=== PATIENT | male | born 1945 | race Two or more races ===

== ENCOUNTER 2025-06-26 17:47 | Emergency (ER) | payer MEDICARE, MEDICAID, SELFPAY ==
--- NOTE | 2025-06-26 18:06 | PC.NURSE ---
PLACED PATIENT IN RIGID C COLLAR FOR C/O NECK PAIN S/P FALL
[2025-06-26 18:18] VITALS: BP 162/79; PULSE 70; RESP 18; TEMP 37; O2SAT 97
--- NOTE | 2025-06-26 18:39 | EKG_ITS ---
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
--- NOTE | 2025-06-26 18:39 | XR_ITS ---
Examination: CT cervical spine without contrast 2-D sagittal reconstructions 2-D coronal reconstructions 3-D reconstructions. Exam date and time:June 26, 2025, 1905 hours INDICATIONS: Patient fell 4 days ago with the neck, neck pain CTDI:vol (mGy) 13.7 DLP: (mGycm) 321 Technique: Multiple 2 mm axial sections of the cervical spine have been obtained. The coronal and sagittal reconstructions have been obtained. 3-D reconstructions have been obtained. Low dose protocols were performed. One or more of the following dose reduction techniques were used; automated exposure control, adjustment of the mA and/or KV according to patient size, use of iterative reconstruction technique. Findings: Axial sections demonstrate intact base of the skull. C1 exhibit satisfactory relationship to the odontoid. No acute cervical vertebral body fracture seen. Alignment posterior spinous processes satisfactory. Impression: No acute cervical fracture.
--- NOTE | 2025-06-26 18:39 | XR_ITS ---
Examination: CT brain head without contrast. 2-D sagittal coronal reconstructions Date and time of exam:June 26, 2025, 1909 hours INDICATIONS: Patient fell 4 days ago with images of the head, head pain CTDI: vol (mGy):13.7 DLP: (mGycm):1457 Technique: Multiple CT axial sections of the brain have been obtained, 5 mm slice thickness. Contrast has not been administered. 2-D sagittal, coronal reconstructions have been obtained Low dose protocols were performed. One or more of the following dose reduction techniques were used; automated exposure control, adjustment of the mA and/or KV according to patient size, use of iterative reconstruction technique. Findings: No significant ventricular enlargement. Bilateral chronic subdural hygromas Intra-axial or extra-axial hemorrhage density is not seen. No mass effect or midline shift Basal cisterns are not remarkable. Fourth ventricle is midline. Cranial vault intact. Impression: Negative for acute hemorrhage, mass effect or midline shift Bilateral chronic subdural hygromas, recommend short-term follow-up CT brain scan as clinically warranted
--- NOTE | 2025-06-26 18:39 | XR_ITS ---
Examination: AP chest single view TECHNIQUE: AP supine portable chest single view Date and time: June 26, 2025 2148 hours INDICATIONS: Shortness of breath today. FINDINGS: Normal heart size. Lungs are clear. Old left-sided rib fractures. IMPRESSION: No pneumonia or pulmonary edema
--- NOTE | 2025-06-26 18:39 | XR_ITS ---
Examination:Left hip AP, lateral, AP pelvis 3 views Technique: Hip AP lateral, AP pelvis, 3 views Exam date and time:June 26, 2025 2115 hours INDICATIONS: Left hip pain this week. FINDINGS: Left hip hemiarthroplasty with satisfactory alignment No fracture Right hip bones of the pelvis intact Moderate narrowing right hip joint IMPRESSION: Left hip hemiarthroplasty with satisfactory alignment.
--- NOTE | 2025-06-26 18:48 | PD.EDHEAD ---
ED Head Injury RME/HPI General Chief complaint: Head Injury Stated complaint: SENT BY PMD FOR DIZZINESS, HIT HEAD THURS. Time Seen by Provider: 06/26/25 18:38 Arrival date/time: 06/26/25 17:47 80M with history of HTN and DM presents to ED with dizziness after he got dizzy, fell and hit the back of his head several days ago. Patient also has some L hip pain. Limitations: no limitations Related Data Allergies Allergy/AdvReac Type Severity Reaction Status Date / Time No Known Allergies Allergy Verified 06/26/25 17:56 Review of Systems Review of Systems Systems Reviewed: All systems reviewed, normal except as documented Constitutional Constitutional: Reports system reviewed and no additional complaints, except as documented, Denies fever(s) and Denies headache(s) ENT Ears, Nose, Mouth, and Throat: Reports as per HPI, Denies disequilibrium, Denies headache(s) and Reports vertigo Cardiovascular Cardiovascular: Reports system reviewed and no additional complaints, except as documented, Denies chest pain and Denies dyspnea Respiratory Respiratory: Reports system reviewed and no additional complaints, except as documented, Denies cough and Denies dyspnea Gastrointestinal Gastrointestinal: Reports system reviewed and no additional complaints, except as documented, Denies abdominal pain, Denies nausea and Denies vomiting Musculoskeletal Musculoskeletal: Reports as per HPI and Reports arthralgias Neurologic Neurologic: Reports system reviewed and no additional complaints, except as documented, Denies confusion, Denies disequilibrium, Denies headache(s) and Reports vertigo Psychiatric Psychiatric: Denies confusion Past Medical History Social History SMOKING STATUS: Current every day smoker ED Exam General Limitations: Present no limitations General appearance: Present alert and in no apparent distress Head Head exam: Present atraumatic Eye Eye exam: Present PERRL (R pupil white reflection) and EOMI ENT ENT exam: Present normal exam, normal oropharynx and mucous membranes moist Neck Neck exam: Present normal inspection, full ROM and trachea midline Chest Chest inspection: Present normal inspection and symmetric chest wall rise Respiratory Respiratory exam: Present normal lung sounds bilaterally Cardiovascular Cardiovascular exam: Present regular rate, normal rhythm and normal heart sounds Abdominal Exam Abdominal exam: Present soft and normal bowel sounds Extremities Exam Extremities exam: Present normal inspection and full ROM Back Exam Back exam: Present normal inspection and full ROM Neurological Exam Neurological exam: Present alert, oriented X3 and CN II-XII intact Psychiatric Psychiatric exam: Present normal affect and normal mood Skin Skin exam: Present warm, dry, intact and normal color Course Quality Measures none Orders Category Date Time Status CT Screening NOW Care 06/27/25 00:27 Completed EKG (ED ONLY) *Do not use* NOW Care 06/26/25 18:39 Completed IV [Insert IV] STAT Care 06/27/25 00:44 Completed Rigid cervical collar PRN Care 06/26/25 18:[address] angio chest abdomen pelvis Stat Exams 06/27/25 00:[address] cervical spine wo con Stat Exams 06/26/25 18:[address] chest abdomen pelvis wo Stat Exams 06/26/25 22:[address] head/brain wo con Stat Exams 06/26/25 18:39 Taken EKG (ED Only) Stat Exams 06/26/25 18:39 Draft XR chest 1V portable Stat Exams 06/26/25 18:39 Taken XR hip LT w pelvis 2-3V Stat Exams 06/26/25 18:39 Taken Alcohol, Blood Medical Stat Lab 06/26/25 18:50 Completed CBC Stat Lab 06/26/25 18:50 Completed Comprehensive Metabolic Panel Stat Lab 06/26/25 18:50 Completed D-Dimer Stat Lab 06/26/25 18:50 Completed Drug Screen,Urine Stat Lab 06/26/25 22:04 Completed Magnesium Stat Lab 06/26/25 18:50 Completed Troponin I Stat Lab 06/26/25 18:50 Completed Urinalysis Stat Lab 06/26/25 22:04 Completed Vital Signs Vital signs: Vital Signs Temperature 98.6 F 06/26/25 18:18 Pulse Rate 70 06/26/25 18:18 Respiratory Rate 18 06/26/25 18:18 Blood Pressure 162/79 H 06/26/25 18:18 Pulse Oximetry (%) 97 06/26/25 18:18 Oxygen Delivery Method Room Air 06/26/25 18:18 O2 at 97% on RA and WNLs Head Injury MDM Narrative MDM Narrative:: 80M with history of HTN and DM presents to ED with dizziness after he got dizzy, fell and hit the back of his head several days ago. Patient also has some L hip pain. Physical exam reveals normal pupil response and EOM; some white reflection in R eye where patient had some kind of eye surgery 20 years ago. No gross head trauma. 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 No gross L hip tenderness. Gait and speech normal. Normal WOB. Patient is afebrile, calm, and alert. EKG is NSR. Telerad CXR possible fx. Normal trop. D-dimer normal. Telerad read CT head/neck no acute abnormalities. CT chest/ab/pelv w/o contrast shows 2 acute rib fractures, though patient doesn't have pain. Also, possible aortic dissection. CTA shows 3.5 cm abdominal aorta with thrombus inside. Size is too small for surgical intervention. Patient AMA'd because he didn't want to wait for head MRI to r/o stroke as cause of dizziness. Patient data External records reviewed:: [facility] previous records Clinical information provided by:: patient Social determinants that could affect healthcare access:: none Patient has the following chronic illnesses:: HTN and DM How is presenting disease/condition affected by chronic disease/condition?: exacerbated by Evaluation data The following diagnostics were reviewed and interpreted by me:: lab results, radiology exam(s) and EKG tracing(s) Lab and/or radiology exams considered but not ordered:: ordered Interpretation Summary: above Medications / Prescriptions Medications or Prescriptions considered but not ordered:: not ordered Medication administrations:: n/a Consultations Consultation(s) initiated? (list below): No Diagnosis Differential diagnosis head injury: concussion without loss of consciousness, epidural hematoma, closed head injury, subarachnoid hematoma, postconcussion syndrome, subdural hematoma and other (hip contusion/fx, internal bleeding, CVA/TIA, brain bleed, Aortic anuerysm, rib fracture, dizziness) Most likely diagnosis given after review of the tests above:: Aortic anuerysm, rib fracture, dizziness Admission Indicated Admission indicated?: not indicated Admission Request Was there a request for admission?: No Disposition Plan Disposition Plan: other (specify) (AMA) Discharge Plan Plan Patient Disposition: Left Against Medical Advice Prescriptions/Referrals Referrals: Anival Bhatia MD [Primary Care Provider] - In 1 week Problem List Clinical Impression: Closed rib fracture, Abdominal aneurysm, Dizziness Patient/Caregiver Discharge Instructions Print Language: Cambodian PA/[employer] CELEBRANT Supervising Physician PA/[employer] CELE[employer] Supervising Physician: Dr. Tilley
[2025-06-26 19:06] LABS: Basophils # (Auto) 0.0 Thou/mm3 (0.0-0.2); Basophils % (Auto) 1 % (0-2.5); Eosinophils # (Auto) 0.1 Thou/mm3 (0.0-0.5); Eosinophils % (Auto) 2 % (0-10); Hematocrit 43.5 % (41.0-53.0); Hemoglobin 14.7 g/dL (13.5-16.0); Immature Granulocytes Auto 0.02 Thou/mm3 (0.00-0.00); Lymphocytes # (Auto) 1.9 Thou/mm3 (1.0-4.8); Lymphocytes % (Auto) 27 % (10-50); Mean Corpuscular HGB Conc 33.8 g/dl (31.0-37.0); Mean Corpuscular Hemoglobin 31.7 pg (25.0-35.0); Mean Corpuscular Volume 94 fL (80-100); Monocytes # (Auto) 0.4 Thou/mm3 (0.0-0.8); Monocytes % (Auto) 6 % (0-12); Neutrophils # (Auto) 4.5 Thou/mm3 (1.8-7.7); Neutrophils % (Auto) 64 % (37-80); Nucleated Red Blood Cell # 0.00 Thou/mm3 (0.00-0.00); Nucleated Red Blood Cell % 0 /100 WBC (0); Platelet Count 221 Thou/mm3 (140-440); RDW Standard Deviation 45.3 fL (35.1-43.9); Red Blood Count 4.64 Miln/mm3 (4.50-5.90); White Blood Count 7.0 Thou/mm3 (3.8-10.6)
[2025-06-26 19:44] LABS: Alanine Aminotransferase 14 U/L (10-49); Albumin, Serum 5.3 gm/dL (3.4-4.8); Albumin/Globulin Ratio 2.3 (1.2-2.2); Alcohol, Blood Medical < 3.0 mg/dL (0-10.0); Alkaline Phosphatase 92 U/L (46-116); Anion Gap 10 (7-16); Aspartate Amino Transferase 15 U/L (0-34); BUN/Creatinine Ratio 14 Ratio (12-20); Bilirubin,Total 0.5 mg/dL (0.3-1.2); Blood Urea Nitrogen 11 mg/dL (9-23); Calcium 10.4 mg/dL (8.3-10.6); Calcium (Corrected) 10.4 mg/dL (8.5-10.1); Carbon Dioxide 27.5 mMol/L (20.0-31.0); Chloride 105 mMol/L (98-107); Creatinine (Component) 0.8 mg/dL (0.6-1.3); Globulin 2.3 gm/dL (2.3-3.5); Glucose 110 mg/dL (74-106); Magnesium 1.9 mg/dL (1.6-2.6); Osmolality,Calculated 283 (275-295); Potassium 4.6 mMol/L (3.4-5.1); Sodium 142 mMol/L (136-145); Total Protein 7.6 gm/dL (5.7-8.2); Troponin I < 0.002 ng/mL (0.0-0.045); eGFR > 60 See Note
[2025-06-26 19:52] LABS: D-Dimer 264 ng/mL (<600)
--- NOTE | 2025-06-26 22:47 | XR_ITS ---
Examination: CT chest, without intravenous contrast. CT abdomen, without intravenous contrast. CT pelvis, without intravenous contrast. 2-D sagittal and coronal reconstructions. 3-D reconstructions. Date and time of exam:June 26, 2025 at 1132 hours INDICATIONS: Patient fell 4 days ago with injury to the chest and abdomen, chest pain abdomen pain CTDI vol (mgy) 6.65 DLP (MGycm)491 Technique: Multiple CT images, 3.0 mm slice thickness, obtained chest, abdomen, pelvis, with the high-resolution 64 slice scanner.. Sagittal and coronal 2-D reconstructions are obtained. 3-D reconstructions Low dose protocols were performed. One or more of the following dose reduction techniques were used; automated exposure control, adjustment of the mA and/or KV according to patient size, use of iterative reconstruction technique. 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 Manubrium and body of the sternum is intact No thoracic lumbar or sacral fracture detected Acute appearing nondisplaced fractures left fourth, fifth ribs anterolaterally No liver or splenic or renal laceration Double-lumen also involving the abdominal aorta AP dimension infrarenal abdominal aorta 3 cm Gallstones No free blood in the abdomen Normal appendix Colonic diverticulosis Negative for pneumoperitoneum Urinary bladder intact Left hip hemiarthroplasty Right hip intact bones of the pelvis intact IMPRESSION: Double lumen of the ascending thoracic aorta, consider thoracic aortic chronic dissection similar double-lumen involving the abdominal aorta consider chronic abdominal aortic dissection consider CTA chest abdomen and pelvis post intravenous contrast follow-up COPD No pneumothorax or hemothorax Acute appearing nondisplaced fractures left fourth and fifth ribs No abdominal parenchymal laceration No free blood in the abdomen or pelvis
[2025-06-26 22:54] LABS: Collection Type, Urine Clean Catch; Squamous Epithelial Cell,Urine 0 /hpf (0-5); WBC,Urine 0 /hpf (0-5)
[2025-06-26 23:13] LABS: Bilirubin,Urine Negative (Negative); Blood,Urine Negative (Negative); Clarity,Urine Clear (Clear/Hazy); Color,Urine Lt-Yellow (Lt Yel-Yel); Glucose, Urine Negative (Negative); Ketones,Urine Negative (Negative); Leukocyte Esterase,Urine Negative (Negative); Nitrite,Urine Negative (Negative); PH,Urine 8.0 (5.0-7.0); Protein,Urine Negative (Neg - Trace); RBC,Urine 2 /hpf (0-3); Specific Gravity,Urine 1.020 (1.001-1.035); Urobilinogen,Urine 2.0 mg/dL (0.0-1.0)
[2025-06-26 23:23] LABS: Amphetamine/Methamp Scrn,U Negative (Negative); Barbiturate Screen,Urine Negative (Negative); Benzodiazepines Screen,Urine Negative (Negative); Benzoylecgonine Screen, Ur Negative (Negative); Fentanyl Screen,Urine Negative (Negative); Opiate Screen,Urine Negative (Negative); THC Screen,Urine Negative (Negative)
--- NOTE | 2025-06-27 00:26 | XR_ITS ---
Examination: CTA chest, with intravenous contrast. CTA abdomen, with intravenous contrast. CTA pelvis, with intravenous contrast. 2-D sagittal and coronal reconstructions. 3-D reconstructions. Date and time of exam: June 27, 2025 0143 hours INDICATIONS: Patient fell 4 days ago with injury to the chest and abdomen, chest pain abdomen pain CTDI vol (mgy) 7.58 DLP (MGycm) 474 Technique: Multiple CTA images, 2.0 mm slice thickness, obtained chest, abdomen, pelvis, with the high-resolution 64 slice scanner. 100 cc Isovue-370 is administered intravenously. Sagittal and coronal 2-D reconstructions are obtained. 3-D reconstructions, angiographic images are obtained. 3-D postprocessing, including vascular maximum intensity projections. Low dose protocols were performed. One or more of the following dose reduction techniques were used; automated exposure control, adjustment of the mA and/or KV according to patient size, use of iterative reconstruction technique. Findings: There is ulceration in the wall of the ascending thoracic aorta, axial image 57 with density or thickening of the wall of the aorta which may represent intramural hematoma No pulmonary artery filling defects No pneumonia or pulmonary edema No visualized liver or splenic lesion Contracted abdominal aorta Aneurysmal dilatation of the infrarenal abdominal aorta 3.5 cm in dimension with ulceration in the wall of the infrarenal abdominal aorta axial images 222 with double lumen, axial image 224 consistent with chronic abdominal aortic dissection Normal appendix Colonic diverticulosis No bowel obstruction Urinary bladder intact IMPRESSION: Ulceration of the wall of the ascending thoracic aorta with thickening of the wall of the aorta which may represent intramural hematoma Aneurysmal dilatation of the infrarenal abdominal aorta Ulceration of the wall of the infrarenal abdominal aorta with double lumen consistent with chronic aortic dissection
--- NOTE | 2025-06-27 02:46 | PRELIM_ITS ---
CT angiogram of the chest, abdomen and pelvis with intravenous contrast (axial sections with sagittal and coronal reformats) June 27, 2025 0143 hours Clinical History: Chronic dissection on CT w/o Comparison: None Findings: The thoracic aorta demonstrates atheromatous calcification without evidence of dissection or aneurysm. The origins of the right brachiocephalic, left common carotid and left subclavian arteries are patent. The abdominal aorta demonstrates atheromatous calcification without evidence of dissection or aneurysm. The celiac, superior mesenteric, inferior mesenteric and bilateral renal arteries are patent to the extent visualized. There is aneurysm of the infrarenal abdominal aorta with intramural thrombus measuring 3.5 cm. There are 3 large saccular aneurysms arising from the infrarenal abdominal aorta , the neck of the aneurysm measures 8 mm each. 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 There is no filling defect within the pulmonary artery divisions to suggest pulmonary thromboembolism. No evidence of mediastinal mass or lymphadenopathy. There is no pericardial effusion. Bibasilar dependent atelectasis is present. There are emphysematous changes in the lungs. There is diffuse bronchial wall thickening with bronchiectatic changes in the lungs. There are scattered areas of scarring. No evidence of pleural effusion or pneumothorax. The liver, spleen, pancreas, adrenals and kidneys are unremarkable.There is a calculus in the gallbladder without evidence of wall thickening or pericholecystic fluid. No evidence of bowel obstruction. A moderate amount of fecal material is present in the colon. There are multiple colonic diverticula without evidence of diverticulitis. The appendix is within normal limits . There is no significant mesenteric or retroperitoneal adenopathy. The urinary bladder is unremarkable. There is no free fluid, free air or abscess. A small fat-containing umbilical hernia is present. Degenerative changes are identified in the spine. There is left hip replacement prosthesis. Impression: No evidence of aortic dissection . No evidence of pulmonary thromboembolism or other acute intrathoracic, intra- abdominal or pelvic pathology. Aneurysm of the infrarenal abdominal aorta with intramural thrombus measuring 3.5 cm. 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 Other findings as described above. Report Electronically Signed By: Avery Ho 06/27/2025 2:45:52 AM [EST]
[2025-06-27 03:13] VITALS: BP 142/80; PULSE 66; RESP 18; TEMP 36.7; O2SAT 95
--- NOTE | 2025-06-27 08:34 | PC.NURSE ---
CALLED PT ON THE PHONE TO LET HIM OF THE ABNORMAL CT RESULTS PER DR. VAZQUEZ, PT REPORTED THAT HE ALREADY TALK THE DOCTOR ON LAST NIGHT (DID NOT GIVE ME A NAME) AND WAS EXPLAINED THE RESULTS USING AN ROLL CAPPER. CHARGE NURSE LEONARDA MADE AWARE.
--- NOTE | 2025-06-27 08:45 | PC.NURSE ---
PT CONTACTED BY HARESH KRISHNA REGARDING CT RESULTS. IN SWED[place] PT INFORMED OF THE FINDING ON THE MRI AND THE RECOMMENDATIONS TO FOLLOW UP WITH PCP FOR REFERRAL TO CARDIO-THORACIC SURGEON OR TO RETURN TO ANY ER FOR FURTHER WORKUP. PT VERBALIZED UNDERSTANDING. STATES THE PROVIDER DID INFORM HIM ALREADY OF THE RESULTS AND THAT HE WILL FOLLOW UP.
== END 2025-06-27 03:14 | disposition left against medical advice (07) ==
PROVIDERS: Physician Assistant; Emergency Provider Emergency Medicine; PCP Family Medicine
DX: S22.32XA Fracture of one rib, left side, initial encounter for closed fracture (principal); I71.43 Infrarenal abdominal aortic aneurysm, without rupture; S39.91XA Unspecified injury of abdomen, initial encounter; R51.9 Headache, unspecified; M54.2 Cervicalgia; R06.02 Shortness of breath; R42 Dizziness and giddiness; M25.552 Pain in left hip; I10 Essential (primary) hypertension; R94.31 Abnormal electrocardiogram [ECG] [EKG]; F17.210 Nicotine dependence, cigarettes, uncomplicated; W19.XXXA Unspecified fall, initial encounter; Z53.29 Procedure and treatment not carried out because of patient's decision for other reasons
CPT/HCPCS: 36415; 70450; 71045; 71250; 71275; 72125; 73502; 74174; 74176; 80053; 80307; 80320; 81001; 83735; 84484; 85025; 85379; 93005; 99284; A4649; Q9967; G0480